=== PATIENT | male | born 1985 | race Caucasian/White ===

== ENCOUNTER 2024-03-18 13:46 | Emergency (ER) | payer OTHER ==
[~2024-03-18] VITALS: Ht 172.7 cm; Wt 103.6 kg
[2024-03-18 14:00] VITALS: BP 169/112; PULSE 86; RESP 18; TEMP 97.7; O2SAT 98
[2024-03-18] MEDS: KETOROLAC 30 MG/ML VIAL IM ONE (15:18)
[2024-03-18] MEDS ORDERED: ACET-8905 PO (15:33)
[2024-03-18] MEDS ORDERED: NAPR-337 PO (15:33)
[2024-03-18] MEDS: HYDROcodone/APAP 5/325 MG 1 TAB TAB PO ONE (15:51)
[2024-03-18 16:15] VITALS: BP 150/100; PULSE 80; RESP 18; TEMP 97.7; O2SAT 96
== END 2024-03-18 16:15 | disposition home or self-care (01) ==
LOC: MED 13:46
DX: M16.11 Unilateral primary osteoarthritis, right hip (principal); M87.9 Osteonecrosis, unspecified; I10 Essential (primary) hypertension; Z79.1 Long term (current) use of non-steroidal anti-inflammatories (NSAID)
CPT/HCPCS: 73502; 96372; 99283; J1885; Q0092